=== PATIENT | female | born 1985 | race Native Hawaiian/Other Pacific Islander ===

== ENCOUNTER 2020-08-17 02:49 | Emergency (ER) | payer SELFPAY ==
[~2020-08-17] VITALS: Ht 160 cm; Wt 127.5 kg
[2020-08-17 03:45] LABS: POTASSIUM 3.8 mmol/L (3.6-5.2)
[2020-08-17 03:49] LABS: PLATELET COUNT 205 K/uL (152-353)
[2020-08-17 06:01] VITALS: BP 129/81; TEMP 98.2
== END 2020-08-17 06:01 | disposition home or self-care (01) ==
LOC: ED 02:49
PROVIDERS: Hospitalist
DX: R10.11 Right upper quadrant pain (principal); R11.2 Nausea with vomiting, unspecified
CPT/HCPCS: 36415; 80053; 80320; 81000; 81025; 82150; 83690; 85027; 96360; 96361; 96365; 96375; 99284; J1170; J1885; J2405; J2543; Q9963